=== PATIENT | female | born 1985 | race Caucasian/White ===

== ENCOUNTER 2017-02-14 18:20 | Emergency (ER) | payer OTHER ==
[~2017-02-14] VITALS: Ht 157.5 cm; Wt 87.0 kg
[~2017-02-14 18:20] MED LIST: CLON1TAB3 PO; SERT50TA PO
[2017-02-14 18:30] VITALS: TEMP 37; Ht 157.5 cm; Wt 87.0 kg
[2017-02-14] MEDS ORDERED: MULT-1019 PO (19:09)
[2017-02-14] MEDS ORDERED: FLUT0.15 NAE (19:09)
[2017-02-14 20:33] LABS: URINE APPEARANCE CLEAR (CLEAR); URINE BILIRUBIN NEG (NEG); URINE COLOR DK YELLOW; URINE NITRITE NEG (NEG); URINE SPECIFIC GRAVITY 1.024 (1.000-1.030); UROBILINOGEN NEG (NEG); ZZURINE CULT IF INDIC CATH NO
[2017-02-14 20:37] LABS: MANUAL MICROSCOPIC REQUIRED? NO; REVIEW REQ? NO
[2017-02-14 20:38] LABS: PREG INTERNAL NEGATIVE QC NEG CLEAR BACKGROUND; PREG INTERNAL POSITIVE QC POS CONTROL LINE
--- NOTE | 2017-02-14 20:38 | DIAGNOSTIC IMAGING REPORT ---
PA CHEST RADIOGRAPH AND UPRIGHT AND SUPINE AP RADIOGRAPHS OF THE ABDOMEN CLINICAL HISTORY: Constipation. Fever. COMPARISON STUDY: CT of the abdomen and pelvis April 30, 2012. FINDINGS: Lung volumes are normal. No consolidation is identified. There is no evidence of pulmonary edema. Cardiac size is normal. Mediastinal contours are normal. There is no free air. The bowel gas pattern is normal. The amount of stool within the colon and rectum is within normal limits. IMPRESSION: 1. No free air or evidence of bowel obstruction. 2. No acute cardiopulmonary findings. Electronically signed by: Adán Gale M.D. 02/14/2017 8:35 PM Dictated Date/Time: 02/14/2017 8:33 PM
[2017-02-14] MEDS ORDERED: LIDOCAINE 4% CREAM 15 GM TUBE EXT STA (20:54)
[2017-02-14] MEDS ORDERED: VALA1TAB2 PO (21:21)
[2017-02-14] MEDS ORDERED: LIDO4CRE10 TOP (21:22)
--- NOTE | 2017-02-14 21:22 | EMERGENCY ROOM VISIT NOTE ---
History First contact with patient: 18:36 Chief Complaint: URINARY SYMPTOMS Stated Complaint: HAVENT BEEN ABLE TO URINATE/BM,FEVER,SORE BUTTOCKS Nursing Triage Summary: c/o trouble hvaing BM and went to pmd and they gave her suppository and had 1 BM and hasn't gone since last BM monday has difficulty sitting and hasn't voided today History of Present Illness The patient is a 31 year old female who presents to the Emergency Room with complaints of trouble having a bowel movement. The patient states that she initially developed symptoms almost one month ago. She reports that she initially had pain with defecation and fevers for 5 days. Fevers resolved but the pain remained. She states that she has been having difficulty moving her bowels due to the pain. She has also had difficulty urinating over the past few days. She denies any abdominal pain, vaginal bleeding, or blood in her stools. She states that she has never been sexually active. Review of Systems A complete 10-point Review of Systems was discussed with the patient, with pertinent positives and negatives listed in the History of Present Illness. All remaining Review of Systems questions can be considered negative unless otherwise specified. Past Medical/Surgical History Medical Problems: (1) Anxiety Social History Smoking Status: Never Smoker Drug Use: none Marital Status: single Housing Status: lives with family Occupation Status: employed Current/Historical Medications Scheduled Clonazepam (Klonopin), 1 MG PO BID PRN Multiple Vitamins W/ Minerals (Multivitamin Women), 1 TAB PO DAILY Sertraline (Zoloft), 50 MG PO DAILY Valacyclovir Hcl (Valtrex), 1,000 MG PO BID Scheduled PRN Fluticasone Propionate (Nasal) (Flonase Allergy Relief), 2 SPRAYS DERIK DAILY PRN for ALLERGIC REACTION Lidocaine (Anorectal) (Lidocaine), 1 APPL TOP QD PRN for Pain Allergies Coded Allergies: No Known Allergies (Unverified , 02/14/17) Physical Exam Vital Signs Date Time Temp Pulse Resp B/P Pulse Ox O2 Delivery O2 Flow Rate FiO2 02/14/17 21:32 76 16 123/63 99 Room Air 02/14/17 20:08 86 18 140/70 98 Room Air 02/14/17 18:30 37.0 80 16 138/81 100 Room Air Physical Exam VITALS: Vitals are noted on the nurse's note and reviewed by myself. Vital signs stable. GENERAL: This is a 31-year-old female, in no acute distress, nondiaphoretic, well-developed well-nourished. HEART: Regular rate and rhythm without murmurs gallops or rubs. LUNGS: Clear to auscultation bilaterally without wheezes, rales or rhonchi. ABDOMEN: Soft, mild suprapubic tenderness. GENITAL: There are several vesicular lesions with surrounding erythema over the vaginal area and anal area. These are painful to touch. NEURO: Patient was alert and oriented to person place and time. Medical Decision & Procedures ER Provider Diagnostic Interpretation: PA CHEST RADIOGRAPH AND UPRIGHT AND SUPINE AP RADIOGRAPHS OF THE ABDOMEN CLINICAL HISTORY: Constipation. Fever. COMPARISON STUDY: CT of the abdomen and pelvis April 30, 2012. FINDINGS: Lung volumes are normal. No consolidation is identified. There is no evidence of pulmonary edema. Cardiac size is normal. Mediastinal contours are normal. There is no free air. The bowel gas pattern is normal. The amount of stool within the colon and rectum is within normal limits. IMPRESSION: 1. No free air or evidence of bowel obstruction. 2. No acute cardiopulmonary findings. Laboratory Results Test 02/14/17 19:38 02/14/17 20:01 Urine Color DK YELLOW Urine Appearance CLEAR (CLEAR) Urine pH 6.0 (4.5-7.5) Urine Specific Wittmann 1.024 (1.000-1.030) Urine Protein NEG (NEG) Urine Glucose (UA) NEG (NEG) Urine Ketones TRACE (NEG) Urine Occult Blood NEG (NEG) Urine Nitrite NEG (NEG) Urine Bilirubin NEG (NEG) Urine Urobilinogen NEG (NEG) Urine Leukocyte Esterase NEG (NEG) Urine Test NEG (NEG) Medications Administered Medications (Trade) Dose Ordered Sig/Mary Route Start Time Stop Time Status Last Admin Dose Admin Lidocaine (AneCream 4%) 1 appln NOW STAT EXT 02/14/17 20:54 02/14/17 20:55 DC 02/14/17 21:33 1 APPLN Medical Decision Differential diagnosis includes herpes simplex, infection, constipation, urinary tract infection, among others. The patient is a 31-year-old female who presents today complaining of difficulty urinating and constipation. Exam shows multiple vesicular lesions consistent with herpes simplex virus. The patient adamantly denies sexual activity, but these findings are highly suggestive of a herpes infection. Abdominal series showed no significant constipation. Urine cath was not suggestive of infection. The patient did have a bladder scan which revealed almost 500 mL of urine within the bladder. I feel that her difficulty with urination and bowel movements is likely due to pain rather than true constipation or urinary retention. The patient will be given Valtrex and lidocaine cream for localized relief. However, if the patient has continued difficulty urinating she should return for further evaluation. She was instructed to follow-up closely with her [employer] for further evaluation of these symptoms. She verbalized her understanding. Based on the patient's presentation and work up, I feel the patient is stable for outpatient treatment. The patient was educated to the emergency department for any worsening of their current condition or new/concerning symptoms. Impression Primary Impression: Genital HSV Departure Information Dispostion Home / Self-Care Condition GOOD Prescriptions Lidocaine (Anorectal) (Lidocaine) 5 % Cre 1 APPL TOP QD Y for Pain, #1 TUBE Prov: Autumn Epperson PA-C 02/14/17 Valacyclovir Hcl (VALTREX) 1 Gm Tab 1000 MG PO BID for 10 Days, #20 TAB Prov: Autumn Epperson PA-C 02/14/17 Referrals Chapincito Boateng MD (PCP) Patient Instructions [facility] Additional Instructions Take the Valtrex as prescribed. Apply the lidocaine cream as needed for pain. Take Colace daily to help soften the stools. Follow-up with [employer] this week. Return to the emergency department if you have further difficulty urinating, abdominal pain, fevers or any other new/concerning symptoms. Problem Qualifiers Primary Impression: Genital HSV
[2017-02-14 21:32] VITALS: BP 123/63; PULSE 76; O2SAT 99
[2017-02-22 19:52] LABS: HERPES SIMPLEX CULT SOURCE OTHER-ANUS; HERPES SIMPLEX VIRUS CULT ISOLATED (NOT ISOLATED)
[2017-02-24 10:47] LABS: HSVTYPE2REFLEX ONLY!DON'T ORDR ISOLATED (NOT ISOLATED)
== END 2017-02-14 21:43 | disposition home or self-care (01) ==
LOC: C.EDB 18:22
DX: A60.09 Herpesviral infection of other urogenital tract (principal); F41.9 Anxiety disorder, unspecified; Z79.899 Other long term (current) drug therapy